=== PATIENT | male | born 1955 | race Caucasian/White ===

== ENCOUNTER → 2017-01-17 | Day surgery (SDC) | payer OTHER ==
[~2017-01-17] VITALS: Ht 172.7 cm; Wt 99.3 kg
[~2017-01-17] MED LIST: 0.9% Sodium Chloride 1,000 ML IV SCH; MELO-259 PO; METO25TA6 PO; NPR500T PO; OMEP20TA86 PO; Sodium Chloride LOK Flush 10 mL Syringe IV PRN; fentaNYL-PF 50 mCg/mL 2 mL Inj IVPUSH PRN
[2017-01-17 08:50] VITALS: BP 158/102; PULSE 87; O2SAT 94
--- NOTE | 2017-01-17 09:49 | PCM.ENDEGD ---
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 Scope introduced esophagus. Esophagus showed normal shiny whitish mucosa consistent with squamous cell component. Z line was at 40 cm from the incisors. There was a 2 cm in length; mucosa consistent with Sparrow's esophagus. Narrow banding done. No ulcer mass nodule erosion mucosal abnormality noted. Scope further advanced to the stomach. Stomach showed normal shiny mucosa with normal appearing rugae folds without any ulcer mass erosion. Cardia fundus body antrum pylorus were all visualized. Retroflexion was done. Stomach was easily inflated and deflatable using air. Scope further events to the distal duodenum. Duodenum revealed normal villous structures with normal appearing folds without any mass ulcer erosion. Impression Probable Sparrow's - if confirmed, hoarseness this may be due to reflux Recommendation Await biopsy Presedation Assessment Risks and Benefits Informed consent was obtained from the patient after all risks and benefits including but not limited to drug reaction, infection, pain, bleeding, perforation, as well as alternatives were discussed. Patient monitoring Continuous pulse oximetry, cardiac monitoring, blood pressure monitoring, IV access, and oxygen at 2L per nasal cannula. Periprocedural Fentanyl: Fentanyl 200mcg Incrementally Midazolam: Midazolam 8mg Incrementally Complications There were no periprocedural complications identified. Post Procedure Plan Post Procedure Recommendations 1. Restrict activities today. 2. Resume normal activities in the morning. 3. Resume medications. 4. GERD behavioral modification: - Avoid fatty, acidic, spicy, large meals - Do not lie down after meals - Do not eat or drink anything for at least 2 1/2 hours before going to bed at night - Discontinue tobacco and alcohol - Decrease or avoid caffeine - Avoid chocolate and mints - Decrease weight - Avoid aspirin and non steroidal anti-inflammatory agents (NSAID) such as Aleve, Advil, Mobic, Naproxen, Ibuprofen, etc 5. Add proton pump inhibitor. Take 30 minutes before 1st meal of the day. 6. Patient informed of normal post procedure side effects as bloating, drowsiness, blood streaking in the stool 7. If gastric biopsy reveal H.pylori, continue with appropriate treatment 8. If small bowel biopsy reveals celiac, continue with appropriate treatment 9. Please don't hesitate to call me with any questions Lamont Devi MD Jan 17, 2017 09:49
--- NOTE | 2017-01-17 09:50 | PCM.ENDCOL ---
Colonoscopy Date of Service: Jan 17, 2017 Physician Lamont Devi MD Pre Procedure Diagnosis: Screening blood in the stools Post Procedure Dx & Findings: Diverticuli and hemorrhoids Procedure Colonoscopy PROCEDURE IN DETAIL: Prep fair Withdrawal time 16 minutes After unremarkable rectal examination the Olympus video colonoscope was inserted patient's anal canal and was advanced to cecum. Landmarks were identified including the ileocecal valve and appendiceal orifice. Scope was withdrawn systematically. Visualized colonic mucosa showed healthy shiny mucosa with normal healthy-appearing vasculature. Patient had multiple diverticuli small to medium size in the sigmoid colon In the rectum retroflexion was done which showed hemorrhoids. Anal canal was inspected carefully on the way out and hemorrhoids noted. Impression Fair prep - patient took GoLYTELY all at once. Diverticuli Hemorrhoids Recommendation Repeat colonoscopy 2 years with [place] prep split. Diverticular diet Presedation Assessment Risks and Benefits Informed consent was obtained from the patient after all risks and benefits including but not limited to drug reaction, infection, pain, bleeding, perforation, as well as alternatives were discussed. Patient monitoring Continuous pulse oximetry, cardiac monitoring, blood pressure monitoring, IV access, and oxygen at 2L per nasal cannula. Complications There were no periprocedural complications identified. Post Procedure Plan Post Procedure Recommendations 1. Restrict activities today. 2. Resume normal activities in the morning. 3. Resume medications. 4. Patient informed of normal post procedure side effects as bloating, drowsiness, blood streaking in the stool. 5. average risk CRCS. If colon polyps come back as: -Hyperplastic- can repeat colonoscopy in 10 years -Tubular adenoma- repeat colonoscopy in 5 years -Tubulovillous/villous adenoma- repeat colonoscopy in 3 years -If any dysplasia- return to clinic as soon as possible 6. Please don't hesitate to call me with any questions. Lamont Devi MD Jan 17, 2017 09:50
[2017-01-17 09:51] VITALS: BP 161/99; PULSE 90; RESP 16; O2SAT 96
[2017-01-17 09:59] VITALS: BP 165/94; PULSE 85; RESP 16; O2SAT 92
[2017-01-17 10:05] VITALS: BP 166/90; PULSE 83; RESP 16; O2SAT 94
--- NOTE | 2017-01-19 12:09 | PATH ---
SURGICAL PATHOLOGY Attending Physician:Lamont Devi M.D. CASE STATUS: Signed Out PATIENT NAME: GABRIEL IRVIN PID: [id number] : 1955 DATE COLLECTED:01/17/2017 16:45 SPECIMEN: Esophagus, Biopsy CLINICAL HISTORY: 1). DISTAL ESOPHAGUS BIOPSY FINAL DIAGNOSIS: 1.DISTAL ESOPHAGUS, BIOPSY: CARDIAC MUCOSA WITH MILD CHRONIC INFLAMMATION. SQUAMOUS EPITHELIUM IS NOT IDENTIFIED. Negative for intestinal metaplasia, dysplasia and malignancy. ICD10 K20.9 GROSS DESCRIPTION: The specimen is received in one formalin filled container labeled with the patient's name, sublabeled "distal esophagus" and consists of 2 portions of tissue which aggregate to 0.2 x 0.2 x 0.2 CM. The specimen is entirely submitted in one cassette. 01/17/2017DC MICRO DESCRIPTION: See diagnosis. ICD-9 CODES: CPT CODES: 1: 37254 Electronically Signed Out Gio Cuevas MD, PhD [facility] Pathology [facility], [place] [address] Technical component performed at [facility], [facility] [address], [address]
== END | disposition home or self-care (01) ==
LOC: END 00:24
PROVIDERS: ATTEND Internal Medicine
DX: Z12.11 Encounter for screening for malignant neoplasm of colon (principal); K57.30 Diverticulosis of large intestine without perforation or abscess without bleeding; K64.9 Unspecified hemorrhoids; K20.9 Esophagitis, unspecified; K92.1 Melena; R49.0 Dysphonia; K21.9 Gastro-esophageal reflux disease without esophagitis
CPT/HCPCS: 43239; 99153; G0121; G0500; J2250; J3010; J7030